=== PATIENT | female | born 1955 | race Caucasian/White ===

== ENCOUNTER 2019-11-11 06:50 | Observation (INO) | payer BC ==
[2019-11-08 11:20] LABS: BASOPHILS % 0.5 % (0.0-1.0); EOSINOPHILS # (AUTO) 0.1 (0.0-0.4); EOSINOPHILS % 0.8 % (0.0-6.0); HEMOGLOBIN 12.7 g/dL (12.0-16.0); LYMPHOCYTES # (AUTO) 1.8 (1.0-3.2); LYMPHOCYTES % 27.2 % (18.0-39.1); MEAN CORPUSCULAR HEMOGLOBIN 28.2 pg (28-32); MEAN CORPUSCULAR HGB CONC 32.6 g/dL (31-35); MEAN CORPUSCULAR VOLUME 86.5 fL (81-99); MONOCYTES # (AUTO) 0.4 (0.2-0.8); MONOCYTES % 5.9 % (4.4-11.3); NEUTROPHILS # (AUTO) 4.3 (2.1-6.9); NEUTROPHILS % 65.4 % (38.7-80.0); PLATELET COUNT 273 x10e3/uL (140-360); RED BLOOD COUNT 4.51 x10e6/uL (3.6-5.1); RED CELL DISTRIBUTION WIDTH 13.8 % (11.7-14.4)
[2019-11-08 11:47] LABS: INR 0.88; PROTHROMBIN TIME 12.5 seconds (11.9-14.5)
[2019-11-08 11:48] LABS: PARTIAL THROMBOPLASTIN TIME 29.1 seconds (23.8-35.5)
[2019-11-08 11:54] LABS: ANION GAP 10.4 mmol/L (8-16); BLOOD UREA NITROGEN 26 mg/dL (7-26); BUN/CREATININE RATIO 28 (6-25); CALCIUM 9.6 mg/dL (8.4-10.2); CARBON DIOXIDE 27 mmol/L (22-29); CHLORIDE 108 mmol/L (98-107); CREATININE, SERUM 0.92 mg/dL (0.57-1.11); EST GLOMERULAR FILTRATION RATE > 60 ML/MIN (60-); GLUCOSE 92 mg/dL (74-118); POTASSIUM 4.4 mmol/L (3.5-5.1); SODIUM 141 mmol/L (136-145)
--- NOTE | 2019-11-08 11:57 | Diagnostic Imaging Report ---
EXAMINATION: CHEST 2 VIEWS INDICATION: Pre-operative COMPARISON: None FINDINGS: LINES/TUBES:None LUNGS:The lungs are well-inflated. No focal consolidation or pulmonary edema. PLEURA:No pleural effusion or pneumothorax. MEDIASTINUM:The cardiomediastinal silhouette appears normal in size and shape. BONES/SOFT TISSUES:No acute osseous injury. Cervical spine fusion hardware. ABDOMEN:No free air under the diaphragm. IMPRESSION: No focal pneumonia or pulmonary edema. Signed by: Alma Sevilla MD on 11/08/2019 11:55 AM
[~2019-11-11] VITALS: Ht 160 cm; Wt 61.7 kg
[~2019-11-11 06:50] MED LIST: AMBIEN10 MG PO; BACITRACIN 50,000 UNIT VIAL ONE; CALCIUM PO; CARTIA XT240 MG PO; CITALOPRAM HBR20 MG PO; CRESTOR40 MG PO; EFUDEX40 GM TOP; ESTRACE42.5 GM TOP; ESTRING1 EACH PO; LIDOCAINE 1% W/EPINEPHRINE 20 ML VIAL ONE; LORTAB 10-5001 EACH PO; MAG PO; MAXZIDE 75 MG-1 EACH PO; MESTINON60 MG PO; POT PO; ROBAXIN-750750 MG PO; TENORMIN50 MG PO; THROMBIN FOR SOLN 5,000 UNIT VIAL ONE; VITAMIN B-121000 MCG PO; VITAMIN C500 M1 PO; VITAMIN D2000 UNIT PO; WELLBUTRIN SR150 MG PO; ZINC PO
--- OUTSIDE RECORDS SUMMARY | 2019-11-11 06:57 | XMS REPORT ---
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 Allergies, Adverse Reactions, Alerts This patient has no known allergies or adverse reactions. Medications This patient has no known medications. Results Test Description Test Time Test Comments Text Results Atomic Results Result Comments CHEST 2 VIEWS 2019-11-08 11:54:00 [place] [address] Patient Name: CHERRY ABREU MR #: [id number] : 1955 Age/Sex: 64/F Req #: [id number] [facility] Physician: Ordered by: WARD PHELAN MD Report #: [id number] Location: OR Room/Bed: Procedure: [id number] DX/CHEST 2 VIEWS Exam Date: 11/08/19 Exam Time: 1145 REPORT STATUS: Signed EXAMINATION: CHEST 2 VIEWS INDICATION: Pre-operative COMPARISON: None FINDINGS: LINES/TUBES:None LUNGS:The lungs are well-inflated. No focal consolidation or pulmonary edema. PLEURA:No pleural effusion or pneumothorax. MEDIASTINUM:The cardiomediastinal silhouette appears normal in size and shape. BONES/SOFT TISSUES:No acute osseous injury. Cervical spine fusion hardware. ABDOMEN:No free air under the diaphragm. IMPRESSION: No focal pneumonia or pulmonary edema. Signed by: Get Castanon MD on 11/08/2019 11:55 AM Dictated By: GET CASTANON MD [id number] Transcribed By: MINNA on 11/08/19 1155 COPY TO: WARD PHELAN MD MM, DIGITAL, MAMMO, SCREENING, WITH LYNNETTE, BILATERAL INCLUDING CAD 2019-01-11 09:30:00 Diagnostic workup per radiologist?->YesReason for Exam:->z12.31 #[id number] - MM, DIGITAL, MAMMO, SCREENING, WITH LYNNETTE, BILATERAL INCLUDING CADBILATERAL DIGITAL SCREENING MAMMOGRAM 3D/2D WITH CAD: 01/11/2019Comparison is made to exams dated: 01/08/2018 mammogram and 12/25/2016 mammogram - [facility]. There are scattered fibroglandular elements in both breasts that could obscure a lesion on mammography. Tomosynthesis 3D imaging of the breast was also performed. Current study was also evaluated with a Computer Aided Detection (CAD) system. Benign appearing vascular calcifications and benign appearing calcifications are present in both breasts. Examination indicates a biopsy marker in the left breast. No significant other findings are seen in either breast. IMPRESSION: BENIGNThere is no mammographic evidence of malignancy. A 1 year screening mammogram is recommended. Jennifer Donovan M.D. pth/:01/11/2019 09:30:34 Normal Exam Mammogram BI-RADS: 2 Benign , DIGITAL, MAMMO, SCREENING, BILATERAL INCLUDING CAD 2018-01-08 15:11:00 Reason for Exam:->screening #[id number] - MM, DIGITAL, MAMMO, SCREENING, BILATERAL INCLUDING CADBILATERAL DIGITAL SCREENING MAMMOGRAM WITH CAD: 01/08/2018Comparison is made to exams dated: 12/25/2016 mammogram and 01/01/2016 mammogram - [facility]. There are scattered fibroglandular elements in both breasts that could obscure a lesion on mammography. Current study was also evaluated with a Computer Aided Detection (CAD) system. Benign appearing calcifications are present in both breasts. Examination indicates a biopsy marker in the left breast. No significant masses, calcifications, or other findings are seen in either breast. IMPRESSION: BENIGNThere is no mammographic evidence of malignancy. A 1 year screening mammogram is recommended. Jennifer Donovan M.D. pth/penrad:01/08/2018 15:11:49 Normal Exam Mammogram BI-RADS: 2 Benign [id number]
[2019-11-11] MEDS ORDERED: ACETAMINOPHEN 1000 MG/100 ML 100 ML IV ONE (07:40)
[2019-11-11] MEDS ORDERED: LIDOCAINE HCL (LTA) 4 ML SOLN ONE (07:40)
[2019-11-11] MEDS ORDERED: CEFAZOLIN SOD 1 GM/NS 50ML 50 ML IV ONE (08:07)
[2019-11-11] MEDS ORDERED: MAGNESIUM/ALUMINUM/SIMETHICONE 30 ML UDC PO PRN (10:15)
[2019-11-11] MEDS ORDERED: HYDROMORPHONE 2MG/ML 2 MG/ML ML IV PRN (10:15)
[2019-11-11] MEDS ORDERED: ACETAMINOPHEN 325 MG TAB PO PRN (10:15)
[2019-11-11] MEDS ORDERED: OXYCODONE/ACETAMINOPHEN 5-325 1 EACH TABLET PO PRN (10:15)
[2019-11-11] MEDS ORDERED: CARISOPRODOL 350 MG TAB PO PRN (10:15)
[2019-11-11] MEDS ORDERED: HYDROCHLOROTHIAZIDE PO SCH (10:15)
[2019-11-11] MEDS ORDERED: MORPHINE SULFATE 5 MG/ML VIAL IM PRN (10:15)
[2019-11-11] MEDS ORDERED: ESTRADIOL 2 MG PO SCH (10:15)
[2019-11-11] MEDS ORDERED: PROMETHAZINE HCL (IM) 25 MG/ML VIAL IM PRN (10:15)
[2019-11-11] MEDS ORDERED: TRIAMTERENE PO SCH (10:15)
[2019-11-11] MEDS ORDERED: [UNRECOGNIZED DRUG - OTHER] PO SCH (10:15)
[2019-11-11] MEDS ORDERED: ZOLPIDEM TARTRATE 5 MG TAB PO PRN (10:15)
[2019-11-11] MEDS ORDERED: FENTANYL CITRATE/PF 100MCG/2 ML INJ ONE ×2 (10:19→15:47)
[2019-11-11 11:01] VITALS: BP 115/76
[2019-11-11] MEDS ORDERED: ONDANSETRON HCL INJ 2MG/ML 2ML 2 MG/ML VIAL ONE (14:27)
[2019-11-11] MEDS ORDERED: SEVOFLURANE INHAL SOLN 250 ML PEN BTL ONE (14:27)
[2019-11-11] MEDS ORDERED: PROPOFOL IV EMULSION 10 MG/ML 20 ML VIAL ONE (14:27)
[2019-11-11] MEDS ORDERED: DEXAMETHASONE SOD PHOS INJ 4 MG/ML VIAL ONE (14:27)
[2019-11-11] MEDS ORDERED: LIDOCAINE HCL 2% LOCAL INJ 5 ML SDV VIAL INJ ONE (14:27)
[2019-11-11] MEDS ORDERED: LIDOCAINE HCL 2% JELLY 5 ML TUBE ONE (14:27)
[2019-11-11] MEDS: CEFAZOLIN SOD 1 GM/NS 50ML 50 ML IV SCH ×2 (15:00→22:20)
[2019-11-11] MEDS ORDERED: MIDAZOLAM HCL 2 MG/2 ML VIAL ONE (15:47)
[2019-11-11 15:48] VITALS: BP 113/79
--- NOTE | 2019-11-11 17:18 | Operative Report ---
DATE OF PROCEDURE: 11/11/2019 SURGEON: Lev Carballo MD PREOPERATIVE DIAGNOSIS: C4-5 spondylosis with radiculopathy, above the level of previous C5-6 fusion, M50.121. POSTOPERATIVE DIAGNOSIS: C4-5 spondylosis with radiculopathy, above the level of previous C5-6 fusion, M50.121. PROCEDURES: 1. C4-5 anterior cervical diskectomy and microsurgical osteophyte resection and allograft fusion, 68391. 2. Preparation of MTF corticocancellous allograft, 44473. 3. C4-5 anterior cervical plating with Synthes ZPN plate, 36082. 4. Removal of C5-6 anterior cervical plate, 09034. 5. Exploration of C5-6 fusion. ANESTHESIA: General. PROCEDURE IN DETAIL: After induction of general anesthesia, the patient was placed on the operating table in supine position. The right side of neck was prepped and draped in sterile fashion. The fluoroscopic C-arm was positioned in cross-table lateral orientation. A transverse incision was created on the right side of neck superimposed on the C4-5 disk space as determined by fluoroscopy. The platysma was divided in line with the incision. A subplatysmal dissection was carried out and avascular plane of dissection was developed medial to the sternocleidomastoid muscle and was followed medial to the carotid sheath to the anterior border of the cervical spine. The deep cervical fascia was opened. The esophagus was retracted to the left. The attachments of longus colli muscles to the anterolateral aspects of vertebral bodies of C4 and C5 and C6 were divided. The previous anterior cervical plate was exposed. The 4 locking screws and the 4 bone screws within the previous Synthes plate were removed. The plate was elevated and removed. Underlying C5-6 fusion was explored and found to be solid. Attention was directed to the C4-5 segment. The anterior osteophyte was resected. The anterior longitudinal ligament was resected. [place] posts were inserted into C4 and C5 and the [place] distractor was used to distract the disk space. The anterior annulus of the disk was incised with a #11 blade and the contents of the disk were thoroughly evacuated with the angled curettes and pituitary rongeurs. The posterior osteophytes were meticulously drilled with a 2 mm cutting bur until they were completely removed. The posterior annulus of the disk, herniated disk material, and the posterior longitudinal ligament were resected layer by layer until the dura was fully exposed and decompressed. The medial aspects of the uncinate processes were resected bilaterally to further expose any compressed origins of the corresponding nerve roots. After satisfactory decompression had been achieved, the endplates were prepared for fusion. A piece of MTF corticocancellous allograft measuring 8 mm in thickness was selected and loaded onto a Synthes ZPN plate. The construct was inserted into the C4-5 disk space under distraction and fluoroscopic guidance. The distraction was released and distraction posts were removed. The plate was then screwed to the endplates of C4 and C5 with 2 pairs of 14 mm screws. All screws were locked and excellent construct was obtained. The wound was copiously irrigated with bacitracin solution. Meticulous hemostasis was secured. Retractor was removed. The platysma was closed with 3-0 Vicryl sutures. The skin was closed with 4-0 Monocryl sutures in subcuticular fashion. Steri-Strips and dressing were applied. The patient was awakened, extubated, and taken to postanesthesia care unit in stable condition. No intraoperative complications were encountered. Estimated blood loss was 10 mL. Lev Carballo MD PP/CHRISTOPHER /[id number]
[2019-11-11] MEDS: LACTATED RINGER'S 1,000 ML IV SCH (17:26)
--- NOTE | 2019-11-11 19:10 | NUR ---
RECEIVED REPORT FROM PREVIOUS NURSE. CALL LIGHT WITHIN REACH. PATIENT IN BED. AT THE BEDSIDE.
--- NOTE | 2019-11-11 19:59 | NUR ---
REPORT GIVEN TO ONCOMING NURSE, WALKING ROUNDS COMPLETE.
[2019-11-11 20:00] VITALS: BP 127/80
[2019-11-11 20:23] VITALS: BP_SYST 111; BP_SYST 127; BP_DIAS 72; BP_DIAS 80
[2019-11-11] MEDS ORDERED: ZOLPIDEM TARTRATE 10 MG TAB PO SCH (21:00)
[2019-11-12] VITALS: BP 115/78
[2019-11-12] MEDS: ONDANSETRON HCL INJ 2MG/ML 2ML 2 MG/ML VIAL IV PRN ×2 (00:35→00:39)
--- NOTE | 2019-11-12 03:39 | NUR ---
HOURLY ROUNDING PERFORMED. CALL LIGHT WITHIN REACH. PATIENT ASLEEP IN BED. AT BEDSIDE.
[2019-11-12 04:00] VITALS: BP 151/88
--- NOTE | 2019-11-12 05:02 | NUR ---
PATIENT WAS NOT RESPONDING WHEN CALLED AND WAS FOAMING A LITTLE THROUGH HER MOUTH. KEEP TRYING TO WAKE UP THE PATIENT, PATIENT FINALLY GOT UP AND SAID "WHAT" AND THEN WENT BACK TO SLEEP. WE KEPT TRYING TO WAKE HER AND KEEP HER AWAKE AND SHE KEPT SAYING "WHAT DO YOU WANT". CALLED THE CHARGE NURSE AND DR PHELAN, DR. PHELAN ORDERED ONE TIME DOSE OF NARCAN. PATIENT RECEIVED THE NARCAN AND IS MORE AWAKE. PATIENT AND HER WAS INFORMED SHE CAN NOT HAVE ANY MORE PAIN MEDICATION OR NAUSEA MEDICATION. PATIENT AND HER UNDERSTOOD.
[2019-11-12] MEDS ORDERED: NALOXONE HCL INJ 0.4 MG/ML AMP ONE (05:13)
[2019-11-12] MEDS ORDERED: NALOXONE HCL INJ 0.4 MG/ML AMP IV PRN (05:15)
[2019-11-12] MEDS: CEFAZOLIN SOD 1 GM/NS 50ML 50 ML IV SCH (06:05)
--- NOTE | 2019-11-12 07:01 | NUR ---
GAVE BEDSIDE SHIFT REPORT TO ONCOMING NURSE. CALL LIGHT WITHIN REACH. PATIENT ASLEEP IN BED. AT THE BEDSIDE.
--- NOTE | 2019-11-12 07:30 | NUR ---
Received patient , alert and responsive, no distress, rounds completed, call light within reach and safety maintained.
[2019-11-12 08:00] VITALS: BP 82/62
[2019-11-12] MEDS ORDERED: ZINC SULFATE 50 MG CAP PO SCH (09:00)
[2019-11-12] MEDS ORDERED: ZINC 25 MG PO SCH (09:00)
[2019-11-12] MEDS ORDERED: CRESTOR 10MG PO SCH (09:00)
[2019-11-12] MEDS ORDERED: DILTIAZEM HCL 240 MG PO SCH (09:00)
[2019-11-12] MEDS ORDERED: NON-FORMULARY MEDICATION (Rosuvastatin Calcium (Crestor) 40 MG) PO SCH (09:00)
[2019-11-12] MEDS ORDERED: POT PO SCH ×2 (09:00)
[2019-11-12] MEDS ORDERED: PYRIDOSTIGMINE BROMIDE 60 MG TAB PO SCH (09:00)
[2019-11-12] MEDS ORDERED: CALCIUM PO SCH ×2 (09:00)
[2019-11-12] MEDS ORDERED: MAG PO SCH ×2 (09:00)
[2019-11-12] MEDS ORDERED: ATENOLOL 50 MG TAB PO SCH (09:00)
[2019-11-12] MEDS ORDERED: DILTIAZEM HCL ER 120 MG CAP PO SCH (09:00)
[2019-11-12] MEDS ORDERED: TRIAMTERENE/HCTZ 37.5-25 MG TAB PO SCH (09:00)
[2019-11-12] MEDS ORDERED: CYANOCOBALAMIN 1,000 MCG TAB PO SCH (09:00)
[2019-11-12 09:40] VITALS: BP 82/62
--- NOTE | 2019-11-12 09:40 | Diagnostic Imaging Report ---
EXAMINATION: C-SPINE 2 VIEWS AP LATERAL INDICATION: Postoperative COMPARISON: Cervical spine radiographs 05/21/2013 FINDINGS: AP and lateral radiograph of the cervical spine demonstrate immediate postoperative findings of anterior cervical discectomy and fusion at C4-5 with removal of previously seen anterior fusion hardware at C5-6. Alignment appears essentially unchanged. Postoperative prevertebral soft tissue swelling with a small amount of soft tissue emphysema. No unexpected fracture. Subcutaneous cutaneous soft tissue emphysema in the anterior neck soft tissues. Partially visualized lung apices are clear. IMPRESSION: Unchanged alignment status post anterior cervical discectomy and fusion at C4-5 with removal of previously seen hardware at C5-6. Signed by: Alma Sevilla MD on 11/12/2019 9:37 AM
[2019-11-12] MEDS ORDERED: NORCO 7.5-3251 EACH PO (10:02)
--- NOTE | 2019-11-12 10:05 | NUR ---
C4 AND C5 X-RAY DONE AND NORMAL ALIGNMENT
--- NOTE | 2019-11-12 10:35 | NUR ---
Provided patient with discharge summary, prescription, instructions and to f/u with MD post discharge. Dressing to cervical incision removed, no bleeding, Neck cervical collar in place. IV line removed, cath tip in place, dressing applied.
== END 2019-11-12 10:48 | disposition home or self-care (01) ==
LOC: OR 06:50 → PACU V 10:08 → MED/SURG 11:25
PROVIDERS: ADMIT Neurological Surgery; ATTEND Neurological Surgery
DX: M50.121 Cervical disc disorder at C4-C5 level with radiculopathy (principal); Z01.810 Encounter for preprocedural cardiovascular examination; Z01.812 Encounter for preprocedural laboratory examination; Z01.811 Encounter for preprocedural respiratory examination; G70.00 Myasthenia gravis without (acute) exacerbation; R53.1 Weakness; R01.1 Cardiac murmur, unspecified; Z88.5 Allergy status to narcotic agent; I10 Essential (primary) hypertension; E78.5 Hyperlipidemia, unspecified
CPT/HCPCS: 36415; 71046; 72040; 77003; 80048; 85025; 85610; 85730; 86850; 86900; 88300; 88304; 93005; C1713; C9359; G0378; J0690; J1100; J2001; J2250; J2310; J2405; J2550; J3010; J7121

== ENCOUNTER → 2019-12-09 | Outpatient (CLI) | payer BC ==
[~2019-12-09] MED LIST changes: -BACITRACIN 50,000 UNIT VIAL ONE; -LIDOCAINE 1% W/EPINEPHRINE 20 ML VIAL ONE; +NORCO 7.5-3251 EACH PO; -THROMBIN FOR SOLN 5,000 UNIT VIAL ONE
--- NOTE | 2019-12-09 11:03 | Diagnostic Imaging Report ---
EXAM: SPINE CERVICAL AP LAT FLEX EXT DATE: 12/09/2019 10:17 AM INDICATION: Cervical disc herniation, cervicalgia COMPARISON: 11/12/2019 FINDINGS: Again identified are postsurgical changes from anterior discectomy and fusion at C4-C5. Chronic changes noted at C5-C6 with removal of previously visualized fusion hardware. There is mild straightening of the normal cervical lordosis. Cervical alignment is otherwise unremarkable. There is no evidence for acute fracture or dislocation. Vertebral body heights are maintained. No focal lytic or blastic abnormality is identified. The prevertebral soft tissues are unremarkable. The visualized lung apices are clear. IMPRESSION: Stable postsurgical changes from at C4-C5. No acute radiographic abnormality identified within the cervical spine. Signed by: Dr. Edy Austin MD on 12/09/2019 10:59 AM
== END ==
LOC: RAD 10:02
PROVIDERS: ATTEND Neurological Surgery
DX: M50.20 Other cervical disc displacement, unspecified cervical region (principal); M43.22 Fusion of spine, cervical region
CPT/HCPCS: 72050

== ENCOUNTER → 2020-07-13 | Outpatient (CLI) | payer BC ==
--- NOTE | 2020-07-13 13:13 | Diagnostic Imaging Report ---
EXAMINATION: Cervical spine radiographs - 4 views. CLINICAL HISTORY: Cervical disc hernia, evaluate fusion status COMPARISON: Cervical spine radiographs for 12/09/2019 and 11/12/2019 DISCUSSION: The cervical spine is visualized from the skull base to C7. Status post C4-C5 discectomy and anterior intervertebral fusion. No evidence of hardware loosening or failure. Additional C5-C6 vertebral body fusion. No fracture or acute osseous abnormality. Cervical lordosis without significant subluxation. No dynamic motion noted on flexion and extension views. Remaining intervertebral disc heights are preserved. Degenerative changes at the atlantodental articulation. No significant facet or uncovertebral arthropathy. The soft tissues are unremarkable. Subtle fractures, ligamentous or soft tissue injuries cannot be excluded on the basis of this examination. IMPRESSION: 1. Status post C4-C5 discectomy and anterior intervertebral fusion. No evidence of acute hardware complication. 2. Additional osseous fusion of the C5 and C6 vertebral bodies. Signed by: Dr. Tyrone Couch M.D. on 07/13/2020 1:10 PM
== END ==
LOC: RAD 10:27
PROVIDERS: ATTEND Neurological Surgery
DX: M50.20 Other cervical disc displacement, unspecified cervical region (principal); M43.22 Fusion of spine, cervical region
CPT/HCPCS: 72050

== ENCOUNTER → 2021-05-18 | Outpatient (CLI) | payer BC | LOC: RAD 11:15 | PROVIDERS: ATTEND Neurological Surgery | DX: M50.20 Other cervical disc displacement, unspecified cervical region (principal); M43.22 Fusion of spine, cervical region | CPT/HCPCS: 72050 ==